=== PATIENT | male | born 1960 ===

== ENCOUNTER 2017-09-14 11:07 | Emergency (ER) | payer MEDICARE, OTHER ==
[2017-09-14 11:08] VITALS: BMI 28.9
[2017-09-14 11:27] VITALS: TEMP 98.3
--- NOTE | 2017-09-14 12:03 | ED PDOC ---
Arrival/HPI - General Chief Complaint: Substance Abuse Time Seen by Provider: 09/14/17 11:16 Historian: Patient - History of Present Illness Narrative History of Present Illness (Text): 09/14/17 11:56 A 56 year old male brought into the emergency department by EMS after being found unresponsive. Patient received 2 mg of nasal Narcan on route to emergency room. On evaluation, patient admits to heroin use over the years but states began using daily for the past week. He reports snorting to bags of heroin this morning, states "I normally don't do this much." Patient currently denies any somatic complaints. Patient denies any injuries, fever, chills, nausea, vomiting , abdominal pain, chest pain, shortness of breath, suicidal ideation, homicidal ideation. Past Medical History - Provider Review Nursing Documentation Reviewed: Yes - Infectious Disease Hx of Infectious Diseases: None - Tetanus Immunization Tetanus Immunization: Unknown - Cardiac Hx Hypertension: Yes - Pulmonary Hx Respiratory Disorders: No - Neurological Hx Paralysis: No - HEENT Hx HEENT Disorder: No - Renal Hx Renal Disorder: No - Endocrine/Metabolic Hx Endocrine Disorders: No - Hematological/Oncological Hx Blood Transfusions: No Hx Blood Transfusion Reaction: No Hx Hepatitis C: Yes - Integumentary Hx Dermatological Disorder: No - Musculoskeletal/Rheumatological Hx Musculoskeletal Disorders: No - Gastrointestinal Hx Gastrointestinal Disorders: No - Genitourinary/Gynecological Hx Genitourinary Disorders: No - Psychiatric Hx Emotional Abuse: No Hx Physical Abuse: No Hx Substance Use: Yes (PAST OPIATE/MARIJUANA USE;DENIES IVDA) - Past Surgical History Past Surgical History: No Previous - Anesthesia Hx Anesthesia Reactions: No Hx Malignant Hyperthermia: No - Suicidal Assessment Feels Threatened In Home Enviroment: No Family/Social History - Physician Review Nursing Documentation Reviewed: Yes Family/Social History: No Known Family HX Smoking Status: Light Smoker < 10 Cigarettes Daily Hx Alcohol Use: No Hx Substance Use: Yes (PAST OPIATE/MARIJUANA USE;DENIES IVDA) Substance used: herion Hx Substance Use Treatment: No Allergies/Home Meds Allergies/Adverse Reactions: Allergies seasonal Allergy (Uncoded 09/14/17 11:14) CONGESTION Home Medications: Home Meds Medication Instructions Recorded Confirmed Unobtainable 09/14/17 09/14/17 Review of Systems - Physician Review All systems were reviewed & negative as marked: Yes - Review of Systems Constitutional: Normal. absent: Fevers, Night Sweats Respiratory: absent: SOB Cardiovascular: absent: Chest Pain Gastrointestinal: absent: Abdominal Pain, Nausea, Vomiting Psychiatric: absent: Suicidal Ideation Physical Exam Vital Signs Reviewed: Yes Vital Signs Temp Pulse Resp BP Pulse Ox 09/14/17 11:25 98.3 F 92 H 17 160/106 H 99 Temperature: Afebrile Blood Pressure: Hypertensive Pulse: Tachycardic Respiratory Rate: Normal Appearance: Positive for: Well-Appearing, Non-Toxic, Comfortable Pain Distress: None Mental Status: Positive for: Alert and Oriented X 3 - Systems Exam Head: Present: Atraumatic, Normocephalic Pupils: Present: PERRL Extroacular Muscles: Present: EOMI Conjunctiva: Present: Normal Mouth: Present: Moist Mucous Membranes Neck: Present: Normal Range of Motion Respiratory/Chest: Present: Clear to Auscultation, Good Air Exchange. No: Respiratory Distress, Accessory Muscle Use Cardiovascular: Present: Regular Rate and Rhythm, Normal S1, S2. No: Murmurs Abdomen: No: Tenderness, Distention, Peritoneal Signs Back: Present: Normal Inspection Upper Extremity: Present: Normal Inspection. No: Cyanosis, Edema Lower Extremity: Present: Normal Inspection. No: Edema Neurological: Present: GCS=15, CN II-XII Intact, Speech Normal Skin: Present: Warm, Dry, Normal Color. No: Rashes Psychiatric: Present: Alert, Oriented x 3, Normal Insight, Normal Concentration Medical Decision Making ED Course and Treatment: 09/14/17 11:56 Impression: A 56 year old male brought in for heroin overdose Plan: -- ED observation -- Reassess and disposition Progress Notes: Plan is to observe in the emergency room for the next few hours. Patient in agreement with plan. EKG shows NSR at 90 BPM with moderate voltage criteria for LVH. Interpreted by me. - Scribe Statement The provider has reviewed the documentation as recorded by the Luisibmarichuy Ramos Provider Scribe Attestation: All medical record entries made by the Scribe were at my direction and personally dictated by me. I have reviewed the chart and agree that the record accurately reflects my personal performance of the history, physical exam, medical decision making, and the department course for this patient. I have also personally directed, reviewed, and agree with the discharge instructions and disposition. Disposition/Present on Arrival - Present on Arrival Any Indicators Present on Arrival: No History of DVT/PE: No History of Uncontrolled Diabetes: No Urinary Catheter: No History of Decub. Ulcer: No History Surgical Site Infection Following: None - Disposition Have Diagnosis and Disposition been Completed?: Yes Diagnosis: Accidental heroin overdose Disposition: HOME/ ROUTINE Disposition Time: 14:22 Patient Plan: Discharge Condition: GOOD Discharge Instructions (ExitCare): Drug Abuse and Drug Addiction (DC), Narcotic Overdose (DC) Additional Instructions: Mr Hernandez- Please, take better care of yourself. Return to us if you have any problems. Sanjay- Dr. Kevon Parson Forms: [employer] (Wallisian)
[2017-09-14 15:47] VITALS: BP 160/88; PULSE 88; RESP 16; O2SAT 98
--- NOTE | 2017-09-14 19:13 | CARD ---
APPROVED REPORT EKG Measurement Heart [id number] ME [id number] [id number] <Conclusion> Normal sinus rhythm Moderate voltage criteria for LVH, may be normal variant Inferior infarct, age undetermined Abnormal ECG
== END 2017-09-14 15:46 | disposition home or self-care (01) ==
LOC: ED 11:07
DX: T40.1X1A Poisoning by heroin, accidental (unintentional), initial encounter (principal); Y92.9 Unspecified place or not applicable; I10 Essential (primary) hypertension; F17.210 Nicotine dependence, cigarettes, uncomplicated

== ENCOUNTER 2017-11-29 14:59 | Emergency (ER) | payer MEDICARE, MEDICAID ==
[2017-11-29 15:00] VITALS: BMI 28.9
[2017-11-29 15:21] VITALS: RESP 18; TEMP 98.7
[2017-11-29] MEDS ORDERED: Naloxone 4 mg/10 ml Inj IV STA (15:30)
[2017-11-29] MEDS ORDERED: Naloxone HCl 2mg/2ml syr ONE (15:31)
[2017-11-29] MEDS ORDERED: Naloxone HCl 2mg/2ml syr NAS ONE (15:34)
--- NOTE | 2017-11-29 15:36 | ED PDOC ---
Arrival/HPI - General Chief Complaint: Substance Abuse Time Seen by Provider: 11/29/17 15:28 EM Caveat: Altered Mental Status (Heroin use ), Intoxicated (Heroin use) - History of Present Illness Narrative History of Present Illness (Text): 11/29/17 15:28 Patient is a 57 year old male who presents to the Emergency department by EMS for heroin use. Patient admits that he used 2 bags of heroin earlier today. Past Medical History - Provider Review Nursing Documentation Reviewed: Yes - Infectious Disease Hx of Infectious Diseases: None - Tetanus Immunization Tetanus Immunization: Unknown - Cardiac Hx Hypertension: Yes - Pulmonary Hx Respiratory Disorders: No - Neurological Hx Paralysis: No - HEENT Hx HEENT Disorder: No - Renal Hx Renal Disorder: No - Endocrine/Metabolic Hx Endocrine Disorders: No - Hematological/Oncological Hx Blood Transfusions: No Hx Blood Transfusion Reaction: No Hx Hepatitis C: Yes - Integumentary Hx Dermatological Disorder: No - Musculoskeletal/Rheumatological Hx Musculoskeletal Disorders: No - Gastrointestinal Hx Gastrointestinal Disorders: No - Genitourinary/Gynecological Hx Genitourinary Disorders: No - Psychiatric Hx Emotional Abuse: No Hx Physical Abuse: No Hx Substance Use: Yes (PAST OPIATE/MARIJUANA USE;DENIES IVDA) - Past Surgical History Past Surgical History: No Previous - Anesthesia Hx Anesthesia Reactions: No Hx Malignant Hyperthermia: No - Suicidal Assessment Feels Threatened In Home Enviroment: No Family/Social History - Physician Review Nursing Documentation Reviewed: Yes Family/Social History: Unknown Family HX Smoking Status: Light Smoker < 10 Cigarettes Daily Hx Alcohol Use: No Hx Substance Use: Yes (PAST OPIATE/MARIJUANA USE;DENIES IVDA) Substance used: herion Hx Substance Use Treatment: No Allergies/Home Meds Allergies/Adverse Reactions: Allergies seasonal Allergy (Uncoded 09/14/17 11:14) CONGESTION Home Medications: Home Meds Medication Instructions Recorded Confirmed Unobtainable 09/14/17 09/14/17 Review of Systems - Review of Systems Systems not reviewed;Unavailable: Intoxicated (Heroin use) Physical Exam - Physical Exam Physical Exam Limitations: Intoxication (Heroin use) Vital Signs Reviewed: Yes Vital Signs Temp Pulse Resp BP Pulse Ox 11/29/17 16:57 77 18 151/86 H 100 11/29/17 15:21 98.7 F 79 18 153/69 H 95 Temperature: Afebrile Blood Pressure: Hypertensive Pulse: Regular Respiratory Rate: Normal Appearance: Positive for: Well-Appearing - Systems Exam Head: Present: Atraumatic, Normocephalic Mouth: Present: Moist Mucous Membranes Medical Decision Making ED Course and Treatment: 11/29/17 15:28 Impression: Patient is a 57 year old male who was brought to the Emergency department by EMS for heroin use. Differential Diagnosis included but are not limited to: Heroin use. Plan: --Narcan -- Reassess and disposition Prior Visits: Notes and results from previous visits were reviewed. Progress Notes: 11/29/17 15:31 Called pharmacy to order Nasal Naloxone 2mg/2ml. 11/29/17 15:35 Nurse states that patient is now A&Ox3 11/29/17 16:27 Reevaluation: On reevaluation the patient feels better, is tearful, awake and orientedx3, and is in no acute distress. Patient given the opportunity to ask question, all questions were answered and there is agreement with the plan to discharge the patient home. Patient is stable for discharge. - Medication Orders Current Medication Orders: Discontinued Medications Naloxone HCl (Narcan) 2 mg IV STAT STA Stop: 11/29/17 15:31 Last Admin: 11/29/17 15:48 Dose: eMAR Start Stop Document 11/29/17 15:48 EQ (Rec: 11/29/17 15:48 EQ [id number]) Intravenous Solution Start Date 11/29/17 Start Time 15:48 Naloxone HCl (Narcan 2mg/2ml) 2 mg TAMMI ONCE ONE Stop: 11/29/17 15:35 Last Admin: 11/29/17 15:47 Dose: 2 mg - Scribe Statement The provider has reviewed the documentation as recorded by the Perry Pinon Provider Scribe Attestation: All medical record entries made by the Scribe were at my direction and personally dictated by me. I have reviewed the chart and agree that the record accurately reflects my personal performance of the history, physical exam, medical decision making, and the department course for this patient. I have also personally directed, reviewed, and agree with the discharge instructions and disposition. Disposition/Present on Arrival - Present on Arrival Any Indicators Present on Arrival: No History of DVT/PE: No History of Uncontrolled Diabetes: No Urinary Catheter: No History of Decub. Ulcer: No History Surgical Site Infection Following: None - Disposition Have Diagnosis and Disposition been Completed?: Yes Diagnosis: Accidental heroin overdose Disposition: HOME/ ROUTINE Disposition Time: 16:24 Patient Plan: Discharge Condition: GOOD Discharge Instructions (ExitCare): Drug Abuse and Drug Addiction (DC), Narcotic Overdose (DC), Taking Narcotics Safely, How to Give Naloxone Additional Instructions: Mr Hernandez- Please be incredibly careful if you are going to continue to use heroin. Enjoy the graduation ceremony. Best- Dr. Kevon Parson Forms: [employer] (Japanese)
[2017-11-29 16:57] VITALS: BP 151/86; PULSE 77; O2SAT 100
== END 2017-11-29 16:57 | disposition home or self-care (01) ==
LOC: ED 14:59
DX: T40.1X1A Poisoning by heroin, accidental (unintentional), initial encounter (principal); Y92.89 Other specified places as the place of occurrence of the external cause

== ENCOUNTER 2018-08-15 14:23 | Observation (INO) | payer MEDICARE, MEDICAID | END 2018-08-17 15:13 | disposition home or self-care (01) | LOC: ERH 08-16 00:21 → 5RSO 08-16 01:05 → ED 14:23 → ERH 20:41 ==

== ENCOUNTER 2018-09-26 00:02 | Emergency (ER) | payer MEDICARE, MEDICAID ==
[2018-09-26 00:03] VITALS: BMI 28.9
[2018-09-26] MEDS: Albuterol-Ipratrop 3 mg / 0.5 (3 ml) UD IH SCH ×3 (00:40→01:12)
[2018-09-26 01:04] LABS: BASO # 0.01 K/mm3 (0.0-2.0); BASO % 0.2 % (0.0-3.0); EOS # 0.1 (0.0-0.7); EOS % 1.1 % (1.5-5.0); HEMOGLOBIN 12.5 g/dL (14.0-18.0); LYMPH # 1.2 (1.2-3.4); MEAN CELL VOLUME 84.2 fl (80.0-105.0); MEAN CORPUSCULAR HEMOGLOBIN 27.4 pg (25.0-35.0); MEAN CORPUSCULAR HGB CONC 32.5 g/dl (31.0-37.0); MEAN PLATELET VOLUME 10.4 fl (7.0-11.0); MONO # 0.3 (0.1-0.6); RBC 4.57 10^6/uL (3.5-6.1); RED CELL DISTRIBUTION WIDTH 13.9 % (11.5-14.5); WHITE BLOOD COUNT 4.6 10^3/uL (4.5-11.0)
[2018-09-26 01:08] LABS: ALB/GLOB RATIO 1.1 (1.1-1.8); ALBUMIN 4.2 g/dL (3.0-4.8); ALT/SGPT 12 U/L (7-56); AST/SGOT 23 U/L (17-59); BLOOD UREA NITROGEN 17 mg/dL (7-21); CALCIUM 9.3 mg/dL (8.4-10.5); GFR NON-AFRICAN AMERICAN 57
--- NOTE | 2018-09-26 01:11 | ED PDOC ---
Arrival/HPI - General Chief Complaint: Palpitations Historian: Patient - History of Present Illness Narrative History of Present Illness (Text): 09/26/18 01:16 Justus Hernandez is a 57 y/o male whose past medical history includes hypertension, HIV, hepatitis C, and substance use, who presents to the emergency department complaining of a fast heart rate associated with SOB which began 1 hour ago. Patient states having right leg pain, feeling like fainting, and feeling exhausted. Patient notes smoking 3 packs per week. Patient denies fever, chills, nausea, vomiting, diarrhea, urinary changes, back pain, chest pain, abdominal pain, or any other associated complaints. Time/Duration: 1 hour Symptom Course: Unchanged Quality: Unable to Describe Severity Level: Moderate Activities at Onset: Rest Context: Home Past Medical History - Provider Review Nursing Documentation Reviewed: Yes - Infectious Disease Hx of Infectious Diseases: None - Tetanus Immunization Tetanus Immunization: Unknown - Cardiac Hx Hypertension: Yes - Pulmonary Hx Respiratory Disorders: No - Neurological Hx Neurological Disorder: No - HEENT Hx HEENT Disorder: No - Renal Hx Renal Disorder: No - Endocrine/Metabolic Hx Endocrine Disorders: No - Hematological/Oncological Hx Hepatitis C: Yes (treated) - Integumentary Hx Dermatological Disorder: No - Musculoskeletal/Rheumatological Hx Falls: No - Gastrointestinal Hx Gastrointestinal Disorders: No Hx Liver Failure: Yes (cirohosis) - Genitourinary/Gynecological Hx Genitourinary Disorders: No - Psychiatric Hx Emotional Abuse: No Hx Physical Abuse: No Hx Substance Use: Yes (past history) - Past Surgical History Past Surgical History: No Previous - Anesthesia Hx Anesthesia: Yes Hx Anesthesia Reactions: No - Suicidal Assessment Feels Threatened In Home Enviroment: No Family/Social History - Physician Review Nursing Documentation Reviewed: Yes Family/Social History: Unknown Family HX Smoking Status: Heavy Smoker > 10 Cigarettes Daily Hx Alcohol Use: No Hx Substance Use: Yes (past history) Substance used: herion Hx Substance Use Treatment: No Allergies/Home Meds Allergies/Adverse Reactions: Allergies seasonal Allergy (Uncoded 09/26/18 00:12) CONGESTION Review of Systems - Physician Review All systems were reviewed & negative as marked: Yes - Review of Systems Constitutional: Fatigue. absent: Fevers Respiratory: SOB. absent: Cough, Wheezing Cardiovascular: Palpitations Gastrointestinal: absent: Abdominal Pain, Diarrhea, Vomiting Musculoskeletal: Other (Right leg pain.). absent: Back Pain, Neck Pain Skin: absent: Rash, Pruritis Neurological: Other ("Feels like fainting"). absent: Headache, Dizziness Psychiatric: absent: Anxiety, Depression Physical Exam Vital Signs Reviewed: Yes Vital Signs Pulse Resp BP Pulse Ox 09/26/18 00:11 94 H 20 103/57 L 96 Temperature: Afebrile Blood Pressure: Normal Pulse: Tachycardic Respiratory Rate: Normal Appearance: Positive for: Well-Appearing, Non-Toxic, Comfortable Pain Distress: None Mental Status: Positive for: Alert and Oriented X 3 - Systems Exam Head: Present: Atraumatic, Normocephalic Pupils: Present: PERRL. No: Sluggish, Non-Reactive Extroacular Muscles: Present: EOMI Conjunctiva: Present: Normal Mouth: Present: Moist Mucous Membranes Neck: Present: Normal Range of Motion. No: Meningeal Signs, JVD Respiratory/Chest: Present: Wheezes (Expiratory wheezing. ), Decreased Breath Sounds (Diminished breath sounds bilateral.). No: Respiratory Distress, Accessory Muscle Use Cardiovascular: Present: Regular Rate and Rhythm, Normal S1, S2. No: Murmurs Abdomen: No: Tenderness, Distention, Peritoneal Signs Back: Present: Normal Inspection. No: CVA Tenderness, Midline Tenderness Upper Extremity: Present: Normal Inspection, Normal ROM. No: Cyanosis, Edema, Tenderness, Swelling Lower Extremity: Present: Normal Inspection, Normal ROM. No: Edema Neurological: Present: GCS=15, Speech Normal Skin: Present: Warm, Dry, Normal Color. No: Rashes Psychiatric: Present: Alert, Oriented x 3, Normal Insight, Normal Concentration Medical Decision Making ED Course and Treatment: 09/26/18 01:26 Impression: 57 y/o male who presents to the emergency department complaining of a fast heart rate and SOB. Plan: -- Labs -- Chest-X-Ray -- Albuterol -- Solu-Medrol -- Reassess and disposition Prior Visits: Notes and results from previous visits were reviewed. Progress Notes: - Lab Interpretations Lab Results: 09/26/18 00:35 09/26/18 00:35 Lab Results 09/26/18 00:35: Sodium 141, Potassium 3.1 L, Chloride 103, Carbon Dioxide 27, Anion Gap 14, BUN 17, Creatinine 1.3, Est GFR ( Amer) > 60, Est GFR (Non- Af Amer) 57, Random Glucose 137 H, Calcium 9.3, Magnesium 2.0, Total Bilirubin 0.4, AST 23, ALT 12, Alkaline Phosphatase 75, Troponin I < 0.01, NT-Pro-B Kristina riuret Pep 66.0, Total Protein 8.1, Albumin 4.2, Globulin 4.0, Albumin/Globulin Ratio 1.1 09/26/18 00:35: D-Dimer, Quantitative < 200 09/26/18 00:35: WBC 4.6 D, RBC 4.57, Hgb 12.5 L, Hct 38.5 L, MCV 84.2, MCH 27.4, MCHC 32.5, RDW 13.9, Plt Count 162, MPV 10.4, Neut % (Auto) 65.7, Lymph % (Auto) 26.0, Schley % (Auto) 7.0 H, Eos % (Auto) 1.1 L, Baso % (Auto) 0.2, Lymph # (Auto) 1.2, Schley # (Auto) 0.3, Eos # (Auto) 0.1, Baso # (Auto) 0.01, Absolute N euts (auto) 3.00 I have reviewed the lab results: Yes - RAD Interpretation Radiology Orders: 09/26/18 00:27 CHEST PORTABLE [RAD] Stat - Medication Orders Current Medication Orders: Discontinued Medications Albuterol/Ipratropium (Duoneb 3 Mg/0.5 Mg (3 Ml) Ud) 3 ml IH Q15M KALYN Stop: 09/26/18 01:01 Last Admin: 09/26/18 00:54 Dose: Not Given Non-Admin Reason: Patient Refused Methylprednisolone (Solu-Medrol) 125 mg IVP STAT STA Stop: 09/26/18 00:29 Last Admin: 09/26/18 00:40 Dose: 125 mg IVP Administration Document 09/26/18 00:40 SS (Rec: 09/26/18 00:40 SS [id number]) Charges for Administration # of IVP Administrations 1 - Scribe Statement The provider has reviewed the documentation as recorded by the Scribe All medical record entries made by the Scribe were at my direction and personally dictated by me. I have reviewed the chart and agree that the record accurately reflects my personal performance of the history, physical exam, medical decision making, and the department course for this patient. I have also personally directed, reviewed, and agree with the discharge instructions and disposition. Disposition/Present on Arrival - Present on Arrival Any Indicators Present on Arrival: No History of DVT/PE: No History of Uncontrolled Diabetes: No Urinary Catheter: No History of Decub. Ulcer: No History Surgical Site Infection Following: None - Disposition Have Diagnosis and Disposition been Completed?: Yes Diagnosis: Dyspnea, Bronchitis, Leg pain Disposition: HOME/ ROUTINE Disposition Time: 02:01 Patient Plan: Discharge Condition: STABLE Discharge Instructions (ExitCare): Muscle and Bone Pain (DC), Shortness of Breath (Dyspnea) (DC) Print Language: JAMAICAN Additional Instructions: All medical record entries made by the Scribe were at my direction and personally dictated by me. I have reviewed the chart and agree that the record accurately reflects my personal performance of the history, physical exam, medical decision making, and the department course for this patient. I have also personally directed, reviewed, and agree with the discharge instructions and disposition. Please follow up with Dr. Andres Prescriptions: Azithromycin [Z-Tra] 250 mg PO DAILY #6 tab Methylprednisolone [Medrol Dose Pack (21 tabs)] 4 mg PO DAILY #21 mg Referrals: Gloria Andres MD [Primary Care Provider] - Follow up with primary Tj Kelly MD [Staff Provider] - Follow up with primary Forms: [employer] (Tajik)
[2018-09-26 01:19] LABS: TROPONIN I < 0.01 ng/mL
[2018-09-26] MEDS ORDERED: Potassium Chloride 20 mEq/15 ml LIQ UD PO STA (01:51)
[2018-09-26 02:14] VITALS: BP 114/58; PULSE 91; RESP 18; TEMP 98.2; O2SAT 98
--- NOTE | 2018-09-26 09:21 | RAD ---
Date of service: 09/26/2018 HISTORY: sob COMPARISON: 09/15/2015 TECHNIQUE: 1 view obtained. FINDINGS: LUNGS: Minimal linear atelectasis of both lung bases. The lungs are otherwise clear PLEURA: No significant pleural effusion identified, no pneumothorax apparent. CARDIOVASCULAR: No aortic atherosclerotic calcification present. Normal cardiac size. No pulmonary vascular congestion. OSSEOUS STRUCTURES: No significant abnormalities. VISUALIZED UPPER ABDOMEN: Normal. OTHER FINDINGS: Mild aortic tortuosity IMPRESSION: No active disease.
--- NOTE | 2018-09-26 20:11 | CARD ---
APPROVED REPORT Date of service: 09/26/2018 EKG Measurement Heart [id number] VT 166P41 [id number] <Conclusion> Sinus tachycardia with premature atrial complexes Otherwise normal ECG
== END 2018-09-26 02:14 | disposition home or self-care (01) ==
LOC: ED 00:02
DX: J40 Bronchitis, not specified as acute or chronic (principal); M79.604 Pain in right leg; I10 Essential (primary) hypertension; F17.210 Nicotine dependence, cigarettes, uncomplicated
CPT/HCPCS: 71045; 80053; 83735; 83880; 84484; 85025; 85378; 93005; 96374; 96375; 99284; J1885; J2930

== ENCOUNTER 2018-10-26 00:16 | Emergency (ER) | payer MEDICARE, MEDICAID ==
[2018-10-26 00:16] VITALS: BMI 28.9
[2018-10-26] MEDS ORDERED: TDAP Vaccine 0.5 mL Syr IM ONE (01:02)
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
[2018-10-26 02:55] VITALS: RESP 18; TEMP 98.1
[2018-10-26 07:10] VITALS: BP 138/92; PULSE 67; O2SAT 97
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
--- NOTE | 2018-10-26 10:25 | CT ---
Date of service: 10/26/2018 PROCEDURE: CT HEAD WITHOUT CONTRAST. HISTORY: headache COMPARISON: None available. TECHNIQUE: Axial computed tomography images were obtained through the head/brain without intravenous contrast. Radiation dose: Total exam DLP = 815.43 mGy-cm. This CT exam was performed using one or more of the following dose reduction techniques: Automated exposure control, adjustment of the mA and/or kV according to patient size, and/or use of iterative reconstruction technique. FINDINGS: HEMORRHAGE: No intracranial hemorrhage. BRAIN: No mass effect or edema. No atrophy or chronic microvascular ischemic changes. VENTRICLES: Unremarkable. No hydrocephalus. CALVARIUM: Unremarkable. PARANASAL SINUSES: Unremarkable as visualized. No significant inflammatory changes. MASTOID AIR CELLS: Unremarkable as visualized. No inflammatory changes. OTHER FINDINGS: The report concurs with the preliminary [facility] report IMPRESSION: No acute intracranial findings
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
--- NOTE | 2018-10-26 10:32 | CT ---
Date of service: 10/26/2018 PROCEDURE: CT Cervical Spine without contrast HISTORY: neck pain COMPARISON: None available. TECHNIQUE: Axial computed tomography images were obtained of the cervical spine without the use of intravenous contrast. Coronal and sagittal reformatted images were created and reviewed. Radiation dose: Total exam DLP = 493.71 mGy-cm. This CT exam was performed using one or more of the following dose reduction techniques: Automated exposure control, adjustment of the mA and/or kV according to patient size, and/or use of iterative reconstruction technique. FINDINGS: VERTEBRAE: No fracture. Normal alignment. No destructive bony lesion. DISCS/SPINAL CANAL/NEURAL FORAMINA: No significant central canal or neural foraminal stenosis. Discs heights are grossly preserved. PARASPINAL SOFT TISSUES: Unremarkable. OTHER FINDINGS: The report concurs with the preliminary [facility] report IMPRESSION: Unremarkable CT of the cervical spine.
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
--- NOTE | 2018-10-26 10:40 | RAD ---
Date of service: 10/26/2018 PROCEDURE: Left Knee Radiographs. HISTORY: Pain. COMPARISON: None. TECHNIQUE: 2 views obtained. FINDINGS: BONES: Normal. No fracture. JOINTS: Normal. No osteoarthritis. JOINT EFFUSION: None. OTHER FINDINGS: None. IMPRESSION: Normal radiographs of the left knee.
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
== END 2018-10-26 08:23 | disposition home or self-care (01) ==
LOC: ED 00:16
DX: S09.93XA Unspecified injury of face, initial encounter (principal); Y04.0XXA Assault by unarmed brawl or fight, initial encounter; I10 Essential (primary) hypertension; F17.210 Nicotine dependence, cigarettes, uncomplicated; Z23 Encounter for immunization